=== PATIENT | female | born 1970 | race Caucasian/White ===

== ENCOUNTER → 2022-04-10 08:33 | Outpatient (BNVA) | payer OTHER, BC, SELFPAY | PROVIDERS: PCP Internal Medicine; Visit Provider Psychiatry & Neurology Neurology | DX: R42 Dizziness and giddiness (principal) ==

== ENCOUNTER → 2022-07-31 07:31 | Outpatient (BNVA) | payer OTHER, BC, SELFPAY | PROVIDERS: PCP Internal Medicine; Visit Provider Psychiatry & Neurology Neurology | DX: F07.81 Postconcussional syndrome (principal); R42 Dizziness and giddiness; R20.0 Anesthesia of skin; R20.2 Paresthesia of skin | CPT/HCPCS: 99212 ==

== ENCOUNTER 2023-02-05 07:33 | Outpatient (AMB) | payer OTHER, BC, SELFPAY ==
--- NOTE | 2023-02-05 07:41 | A.OFFVIS_ITS ---
Intake Vital Signs 02/05/23 07:45 Weight 157 lb BP 112/70 Blood Pressure Location Lt brachial Position Sitting Pulse 71 Pulse Source Pulse Oximeter Pulse Oximetry (%) 97 Oxygen Delivery Method Room Air Intake Visit Reasons: 6m f/u vertigo symp/body numbness /confirmed Intake Note: F/U Vertigo Manager Of Transportation Required: No Allergies adhesive tape Allergy (Unknown, Verified 02/05/23 07:41) Unknown chlorhexidine Allergy (Unknown, Verified 02/05/23 07:41) Unknown voriconazole Allergy (Unknown, Verified 02/05/23 07:41) Unknown Medication List - Last Reconciled 02/05/23 by Lea Hadley MD acyclovir 400 mg PO TID atovaquone 1,500 mg PO DAILY cholecalciferol (vitamin D3) 25 mcg PO DAILY ruxolitinib (Jakafi) 10 mg PO BID sertraline 50 mg PO DAILY vitamin B complex (B Complex-Vitamin B12 tablet) 1 tab PO DAILY HPI HPI Comments History of Present Illness Details 52y/o female comes for follow up of chr onic vertigo. Her dizziness was stable - had occasional episodes but had another episode that lasted 2 weeks . she is better now.But very congested. She reported numbness in left leg since her May 2021 . SHe has back pain occasionally ,tingling but denies any shooting pains or not sure about weakness. 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 In May 2021 she slipped, fell on ice and hit her head in the occipital region. She went to ER and was diagnosed as concussion. she had nausea , headache and dizziness initially.she had difficulty sleeping that night but went to work next day. she works at an insurance company. By the end of the week her symptoms gradually worsened, she had difficulty with traffic lights and had dizziness and headaches.she also felt very off balance and did not feel right in space. she called EMS and went to ER again and was diagnosed with post concussion.she was given meclizine which helped mildly. Her dizziness is better now but still feels like she is off in space.she denies diplopia. she hears noise in her ears, feels like discomfort and pain in her ears.she feels like her ears are blocked all the time. her headaches are stable [facility] Medical History Numbness and tingling of left leg Post concussion syndrome Head injury Vertigo Concussion Chemotherapy-induced neuropathy AML (acute myeloblastic leukemia) Surgical History Hx of cholecystectomy H/O bone marrow transplant Family History Father Hypertension Mother Hypertension Hyperlipemia Sister Hypertension Hyperlipemia Social History Alcohol intake: current Alcohol intake frequency: holidays/special occasions only Patient Tobacco Use Status: Never used Tobacco Use of substances other than those prescribed or required for medical reasons: No Physical Exam Vital Signs: Last Vital Signs Pulse 71 02/05/23 07:45 BP 112/70 02/05/23 07:45 Pulse Ox 97 02/05/23 07:45 Oxygen Delivery Method Room Air 02/05/23 07:45 Const General: cooperative, healthy appearing and comfortable Nutritional Appearance: average body habitus Orientation/consciousness: patient oriented x3 HEENT Other: congested Head: Yes normal to inspection and Yes normocephalic Eyes Pupils: Equal, round and reactive pupils present Neck Neck: Yes no meningeal signs Neuro General: patient oriented x3, gait normal, tone normal, moves all extremities, Normal light touch and pain sensation, no meningeal signs and no focal motor deficits Cranial nerves: Yes CN's II-XII intact bilaterally, Yes Facial sensation intact/muscles of mastication intact, Yes Equal, round and reactive pupils present, Yes Bilaterally intact EOM present, Yes Nystagmus not present, Yes Normal facial strength present and Yes Midline tongue present Cognition (Neuro): normal cognition Gait exam (Neuro): Normal gait present Motor exam (neuro): 5/5 motor strength present throughout, Normal motor muscle tone present throughout and Pronator motor function present Coordination: [id number] test normal Psych Appearance: grossly normal Assessment & Plan Assessment & Plan (1) Post concussion syndrome: Comment: improved with residual mild dizziness , ear fullness- with another episode 2 weeks ago Code(s): F07.81 - Postconcussional syndrome (2) Vertigo: Comment: improving , related to closed head injury Code(s): R42 - Dizziness and giddiness (3) Numbness and tingling of left leg: Comment: since her fall. ? radiculopathy Code(s): R20.0 - Anesthesia of skin; R20.2 - Paresthesia of skin Plan Vestibular rehab Continue using a humidifier, nasal decongestant , zyrtec for ear stuffiness. EMG and X ray reports from PCP Orders: Orders PT Evaluation and Treatment Today R42 - Dizziness and giddiness Coding Level of Care Code Est Pt Level 4 (11836) Diagnoses Post concussion syndrome F07.81 Vertigo R42 Numbness and tingling of left leg R20.0; R20.2
[2023-02-05 07:45] VITALS: BP 112/70; PULSE 71; O2SAT 97
== END 2023-02-05 08:06 | disposition home or self-care (01) ==
PROVIDERS: Visit Provider Psychiatry & Neurology Neurology
DX: S09.90XS Unspecified injury of head, sequela (principal); F07.81 Postconcussional syndrome; R20.0 Anesthesia of skin; R20.2 Paresthesia of skin
CPT/HCPCS: 99214

== ENCOUNTER → 2023-02-05 07:33 | Outpatient (BNVA) | payer OTHER, BC, SELFPAY | PROVIDERS: Visit Provider Psychiatry & Neurology Neurology | DX: R42 Dizziness and giddiness (principal); R20.0 Anesthesia of skin; R20.2 Paresthesia of skin; G62.0 Drug-induced polyneuropathy; T45.1X5A Adverse effect of antineoplastic and immunosuppressive drugs, initial encounter; F07.81 Postconcussional syndrome; Z85.6 Personal history of leukemia; Z92.21 Personal history of antineoplastic chemotherapy; Z92.25 Personal history of immunosuppression therapy; Z94.81 Bone marrow transplant status | CPT/HCPCS: 99212 ==